=== PATIENT | female | born 1985 | race Caucasian/White ===

== ENCOUNTER 2019-08-21 15:15 | Inpatient (IN) | payer OTHER ==
[~2019-08-21] VITALS: Ht 170.2 cm; Wt 2.7 kg
[2019-08-31] MEDS ORDERED: PRENATAL PLUS1 EAC1 PO (11:04)
== END 2019-09-03 14:00 | disposition home or self-care (01) | DRG 788 ==
LOC: O/R 08-31 10:25 → OB/GYN 08-31 14:36
PROVIDERS: ADMIT Obstetrics & Gynecology
PROC: 4A1HXFZ Monitoring of Products of Conception, Cardiac Rhythm, External Approach (ICD-10-PCS; 2019-08-31)
PROC: 3E033VJ Introduction of Other Hormone into Peripheral Vein, Percutaneous Approach (ICD-10-PCS; 2019-08-31)
PROC: 10D00Z1 Extraction of Products of Conception, Low, Open Approach (ICD-10-PCS; principal; 2019-08-31 12:00)
DX: O64.1XX0 Obstructed labor due to breech presentation, not applicable or unspecified (principal); Z37.0 Single live birth; Z3A.38 38 weeks gestation of pregnancy